=== PATIENT | male | born 1955 | race Caucasian/White ===

== ENCOUNTER 2021-01-17 20:04 | Emergency (ER) | payer BC, MEDICARE ==
--- NOTE | 2021-01-17 21:40 | ED Physician Documentation ---
PD HPI UPPER EXT INJURY - Stated complaint Stated Complaint: LT ARM PX/TIGHTNESS - Chief complaint Chief Complaint: Ext Problem - History obtained from History obtained from: Patient - History of Present Illness Location: Left - Additonal information Additional information: L arm pain for 3 hours after chopping wood. Started while taking a shower with hand twitching, "like a deshawn horse" in the L forearm. Review of Systems Constitutional: denies: Fever, Chills Ears: reports: Reviewed and negative Nose: reports: Reviewed and negative Throat: reports: Reviewed and negative Cardiac: reports: Reviewed and negative Respiratory: reports: Reviewed and negative PD PAST MEDICAL HISTORY - Past Medical History Past Medical History: Yes Respiratory: Sleep apnea Musculoskeletal: Chronic back pain - Past Surgical History Past Surgical History: No General: Appendectomy, Hiatal hernia repair - Present Medications Home Medications: Ambulatory Orders Medication Instructions Recorded Confirmed Nicotine 14 mg Patch [Nicoderm] 1 each TOP Q24H #14 patch 01/17/21 Nicotine 21 mg Patch [Nicoderm] 1 each TOP Q24H #14 patch 01/17/21 Nicotine 7 mg Patch [Nicoderm] 1 each TOP Q24H #14 patch 01/17/21 - Allergies Allergies/Adverse Reactions: Allergies Allergy/AdvReac Type Severity Reaction Status Date / Time No Known Drug Allergies Allergy Verified 01/17/21 20:12 - Social History Does the pt smoke?: Yes Smoking Status: Current every day smoker Does the pt drink ETOH?: No Does the pt have substance abuse?: No - Immunizations Immunizations are current?: Yes PD ED PE NORMAL - Vitals Vital signs reviewed: Yes - General General: Alert and oriented X 3, No acute distress - Neck Neck: Supple, no meningeal sign, No bony TTP - Cardiac Cardiac: RRR, No murmur - Respiratory Respiratory: No respiratory distress, Clear bilaterally - Abdomen Abdomen: Non tender - Neuro Neuro: Alert and oriented X 3, Normal speech Results - Vitals Vitals: Vital Signs - 24 hr 01/17/21 20:12 Temperature 36.5 C Heart Rate 88 Respiratory 16 Rate Blood Pressure 160/80 H O2 Saturation 96 Oxygen O2 Source Room air - EKG (time done) 2150 Rate: Rate (enter#) (77) Rhythm: NSR [place]: Normal Intervals: Normal GA QRS: Normal Ischemia: Normal ST segments PD MEDICAL DECISION MAKING - ED course ED course: Specific concern for atypical GA, his symptoms or not really consistent with that, just an overuse from working in the yard heavily today. He would also like "pills" for his tobacco abuse. We discussed that Chanbenjaminx was recalled as of a couple of days ago so we settled on nicotine patches. Departure - Departure Disposition: 01 Home, Self Care Clinical Impression: Tobacco abuse Pain in extremity Qualifiers: Extremity pain location: upper extremity Laterality: left Qualified Code(s): M79.602 - Pain in left arm Condition: Good Record reviewed to determine appropriate education?: Yes Instructions: ED Smoking Cessation Prescriptions: Nicotine 7 mg Patch [Nicoderm] 1 each TOP Q24H #14 patch Nicotine 14 mg Patch [Nicoderm] 1 each TOP Q24H #14 patch Nicotine 21 mg Patch [Nicoderm] 1 each TOP Q24H #14 patch Comments: Call your doctor to arrange a follow-up appointment, make the next available appointment. In the interim, return anytime if worse or if new symptoms develop.
[2021-01-17 22:06] VITALS: BP 134/72
== END 2021-01-17 22:06 | disposition home or self-care (01) ==
LOC: ED 20:04
DX: M79.602 Pain in left arm (principal); Z72.0 Tobacco use
CPT/HCPCS: 93005; 99283

== ENCOUNTER 2023-09-22 08:15 | Day surgery (SDC) | payer BC, MEDICARE ==
[2023-09-22] MEDS: PROPARACAINE 0.5% OPHTH DROPS 15 ML ONE (08:30)
[2023-09-22] MEDS: LACTATED RINGERS 1,000 ML IV ONE (08:30)
[2023-09-22] MEDS: KETOROLAC 0.45% OPHTH DROPS ONE (08:30)
[2023-09-22] MEDS: PHENYLEPHRINE 2.5% OPHTH 2 ML DROPS ONE (08:38)
[2023-09-22] MEDS: CYCLOPENTOLATE 1% OPHTH DROPS 2 ML ONE (08:38)
[2023-09-22] MEDS ORDERED: BSS/LIDOCAINE/EPINEPHRINE 1 ML VIAL ONE (09:32)
[2023-09-22] MEDS ORDERED: TRIAMCIN/MOXIFLOX OPHTHALMIC 0.6 ML VIAL IO ONE (09:32)
[2023-09-22] MEDS ORDERED: BRIMONIDINE 0.2% OPHTH DROPS 5 ML ONE (09:32)
[2023-09-22] MEDS ORDERED: EPINEPHrine 1 MG/ML AMP ONE (09:32)
[2023-09-22] MEDS ORDERED: TIMOLOL 0.5% OPHTH DROPS ONE (09:32)
--- NOTE | 2023-09-22 09:34 | ANESTHESIA ---
Pre-Anesthesia VS, & Labs - Diagnosis cataract - Procedure PhacoIOL Vital Signs: Temp Pulse Resp BP Pulse Ox O2 Flow Rate 36.6 C 59 L 12 159/77 H 97 09/22/23 08:32 09/22/23 08:32 09/22/23 08:32 09/22/23 08:32 09/22/23 08:32 Height: 6 ft 4 in Weight (kg): 109.3 kg Body Mass Index: 29.3 BMI Classification: Overweight - NPO >8 hours Home Medications and Allergies Home Medications: Ambulatory Orders Terbinafine [LamISIL] 500 mg PO 09/22/23 Terbinafine [LamISIL] 500 mg PO 09/22/23 Allergies/Adverse Reactions: Allergies Allergy/AdvReac Type Severity Reaction Status Date / Time No Known Drug Allergies Allergy Verified 01/17/21 20:12 Anes History & Medical History - Anesthetic History Anesthesia Complications: reports: No previous complications Family history of Anesthesia Complications: Denies Family history of Malignant Hyperthermia: Denies - Medical History Cardiovascular: reports: None Pulmonary: reports: Sleep apnea, CPAP use Gastrointestinal: reports: None Urinary: reports: None Musculoskeletal: reports: Other Endocrine/Autoimmune: reports: None Skin: reports: None Smoking Status: Current every day smoker Psychosocial: reports: Anxiety - Surgical History General: reports: Colonoscopy, Other Exam General: Alert, Oriented x3, Cooperative Dental: WNL Mouth Openin Fingerbreadth Neck Mobility: Normal Mallampati classification: II Thyromental Distance: 4-6 cm Respiratory: Lungs clear Cardiovascular: Regular rate Plan Anesthesia Type: MAC Consent for Procedure(s) Verified and Reviewed: Yes Code Status: Attempt Resuscitation ASA classification: 2-Mild systemic disease Is this case an emergency?: No
[2023-09-22] MEDS ORDERED: MIDAZOLAM 2 MG/2 ML VIAL ONE (10:06)
[2023-09-22] MEDS: TIMOLOL 0.5% OPHTH DROPS OPTH ONE (10:15)
[2023-09-22] MEDS: EPINEPHrine 1 MG/ML AMP IR ONE (10:15)
[2023-09-22] MEDS: BSS/LIDOCAINE/EPINEPHRINE 1 ML SYRINGE IO ONE (10:15)
[2023-09-22] MEDS: BRIMONIDINE 0.2% OPHTH DROPS 5 ML OPTH ONE (10:15)
[2023-09-22] MEDS: TRIAMCIN/MOXIFLOX OPHTHALMIC 0.6 ML VIAL IO ONE (10:15)
[2023-09-22] MEDS: PROPARACAINE 0.5% OPHTH DROPS 15 ML RIGHTEYE ONE (10:15)
[2023-09-22] MEDS: VANCOMYCIN OPHTH (TOPICAL) 10 MG/ML SYRINGE TOP ONE (10:16)
[2023-09-22] MEDS: LACTATED RINGERS 900 ML IV ONE ×2 (10:38)
--- NOTE | 2023-09-22 10:40 | OPERATIVE REPORT ---
Operative Report - Other Other Information/Narrative: Date of Surgery: 09/22/23 Preop Dx: Visually significant cataract right eye. This was the first cataract surgery. Postop Dx: Same Procedure: Phacoemulsification with posterior chamber intraocular lens implant right eye Surgeon: Dr. Jim Lainez Anesthesia: Monitored anesthesia care Complications: None Operative Indications: This is a 67-year-old M with progressive vision loss in the right eye due to 3+ nuclear sclerotic and vacuolar cataract. Best corrected visual acuity was 20/25 with glare to 20/60 vision in the right eye. Indications for surgery were: - Overall decrease in vision - Difficulty seeing words, closed captions, or game scores on TV - Difficulty seeing street signs - Difficulty driving in low light or at night - Difficulty driving at night because of headlights from other vehicles - Difficulty with glare or bright lights in any situation The patient was consented at length concerning the risks and benefits of cat aract surgery after which the patient expressed a desire to proceed with surgery. Operative Procedure: The patient was taken into OR#3 and placed under monitored anesthesia care. A surgical time-out was conducted confirming correct patient, correct procedure, and correct surgical site. The patient was given topical anesthesia and then prepped and draped in the usual sterile fashion. The eye was entered at the 6 and 3 oclock positions. Intracameral Shugarcaine was injected into the anterior chamber followed by a dispersive viscoelastic. A continuous-tear curvilinear capsulorhexis was performed. The nucleus was hydrodissected and phacoemulsified. The cortex was evacuated using automated infusion and aspiration. A cohesive viscoelastic was injected into the capsular bag and a 21.0 diopter intraocular lens was inserted into the bag. Infusion and aspiration were used to evacuate the viscoelastic materials from the eye. The wounds were hydrated and the eye inflated to physiologic pressure using balanced salt solution. Approximately 0.25ml of a mixture of triamcinolone and moxifloxacin was injected trans-sclerally into the vitreous in the inferotempora l quadrant using a 30 gauge cannula. An additional 0.25ml of a mixture of triamcinolone and moxifloxacin was injected subconjunctivally in the superior quadrant for infection and inflammation prophylaxis. Wound integrity was checked with Weck-Arleen sponges. The patient was taken from the operating room in good condition and given post-op instructions.
--- NOTE | 2023-09-22 10:55 | ANESTHESIA POST OP EVALUATION ---
Anesthesia Post Eval - Post Anesthesia Eval Vitals: Last Vital Signs Temp 36.6 C 09/22/23 10:39 Pulse 72 09/22/23 10:53 Resp 18 09/22/23 10:53 BP 148/68 H 09/22/23 10:53 Pulse Ox 98 09/22/23 10:53 O2 Flow Rate CV Function Including HR & BP: Stable Pain Control: Satisfactory Nausea & Vomiting: Negative Mental Status: Baseline Respiratory Status: Airway Patent Hydration Status: Satisfactory Anesthesia Complications: None
[2023-09-22 11:01] VITALS: BP 148/68; O2SAT 98
== END 2023-09-22 08:16 | disposition home or self-care (01) ==
LOC: SDS 08:15
PROVIDERS: ATTEND Ophthalmology
DX: H25.811 Combined forms of age-related cataract, right eye (principal); G47.30 Sleep apnea, unspecified; F17.200 Nicotine dependence, unspecified, uncomplicated
CPT/HCPCS: 66984; A9270; J3490; J7120